=== PATIENT | female | born 1975 | race Caucasian/White ===

== ENCOUNTER → 2016-07-17 | Outpatient (CLI) | payer BC ==
[~2016-07-17] MED LIST: ULTRACET 325 MG1 TAB PO
== END ==
LOC: RT 17:13
DX: R07.89 Other chest pain (principal)

== ENCOUNTER → 2017-04-05 | Outpatient (CLI) | payer BC ==
[2017-04-07 08:36] LABS: RA Latex Turbid. <10.0 IU/mL (0.0-13.9)
[2017-04-08 20:36] LABS: CCP Antibodies IgG/IgA 229 units (0-19)
[2017-04-09 12:37] LABS: Antinuclear Antibodies, IFA Negative (.)
== END ==
LOC: LAB 16:23
PROVIDERS: Orthopaedic Surgery Hand Surgery
DX: M06.049 Rheumatoid arthritis without rheumatoid factor, unspecified hand (principal)